=== PATIENT | male | born 1975 | race Caucasian/White ===

== ENCOUNTER → 2021-05-01 | Day surgery (SDC) | payer OTHER ==
[~2021-05-01] VITALS: Ht 188 cm; Wt 93.4 kg
[~2021-05-01] MED LIST: ADVAIR 100-501 EACH INH; BIOTIN1 M1 PO; CHROMIUM400 MCG PO; COQ-10100 MG PO; FOLATE PO; HYDROCODON-ACE1 EAC7 PO; IRON325 M1 PO; PROAIR HFA8.5 GM INH; VITAMIN B12-FO1 EAC1 PO; VITAMIN C500 M2 PO; VITAMIN D325 MC5 PO; VITAMIN E400 UNIT PO; ZINC30 M1 PO
--- NOTE | ~2021-05-01 | O ---
[facility] [place] [address] OPERATIVE REPORT Name: GENEVA EVERETT Room #: [facility]..#: [id number] Admission: 05/01/21 Attend Phys: Todd Barrios MD Discharge: Date of : 79 Report #: [id number] THIS REPORT FOR: cc: Rodriguez Humphrey MD,Rodriguez Barrios,Todd Holt MD ~ cc: Rodriguez Humphrey MD DATE OF SERVICE: 05/01/2021 PATIENT OF: Dr. Todd Barrios and Dr. Rodriguez Humphrey. PREOPERATIVE DIAGNOSIS: Umbilical hernia. POSTOPERATIVE DIAGNOSIS: Umbilical hernia. PROCEDURE: Umbilical hernia repair. SURGEON: Todd Barrios MD ANESTHESIA USED: Local IV sedation. DESCRIPTION OF PROCEDURE: The patient was brought to the operating room and placed on the operating table in the supine position. Sequential compression devices were in place for DVT prophylaxis. There was no indication for preoperative antibiotics. The patient underwent IV sedation and the abdomen was then prepped and draped in a sterile fashion. Skin and subcutaneous tissue around the umbilicus was then infiltrated with 0.5% Marcaine and 1% Xylocaine with epinephrine. Transverse infraumbilical skin incision was then performed using #15 scalpel blade. Hemostasis obtained using electrocautery. Dissection was carried down through subcutaneous tissue to the fascial defect, which was dissected free from the umbilicus. The fascial defect was then closed using interrupted [id number] #1 PDS sutures. The umbilicus was then tacked to the fascia using a simple interrupted 2-0 chromic suture. Deep and superficial subcutaneous tissue was then reapproximated using simple interrupted 2-0 chromic sutures. The skin was then closed using a running 4-0 subcuticular Vicryl stitch. The wound was then dressed with Dermabond, Telfa, 4 x 4 gauze, sponge, and tape. The patient was then awakened from the IV sedation and taken to recovery room awake, alert and in good condition. Estimated blood loss was approximately 5 mL and the patient tolerated the procedure well. All sponge, lap and instrument counts were correct x2. By: [id number] Todd Barrios MD /nt
[2021-05-01 10:22] VITALS: BP 115/68
[2021-05-01 13:01] VITALS: BP 115/68
== END | disposition home or self-care (01) ==
LOC: OR 07:52
PROVIDERS: ATTEND Surgery
DX: K42.9 Umbilical hernia without obstruction or gangrene (principal); J45.909 Unspecified asthma, uncomplicated; Z98.890 Other specified postprocedural states; Z79.899 Other long term (current) drug therapy; Z87.891 Personal history of nicotine dependence; Z20.822 Contact with and (suspected) exposure to COVID-19; Z85.828 Personal history of other malignant neoplasm of skin
CPT/HCPCS: 50010; 50101; 50386; 50403; 54118; 56524; 56525; 56526; 62110; 62850; 70005